=== PATIENT | male | born 1980 | race Two or more races ===

== ENCOUNTER 2023-09-02 20:17 | Emergency (ER) | payer OTHER ==
[~2023-09-02] VITALS: Ht 177.8 cm; Wt 120.2 kg
[~2023-09-02 20:17] MED LIST: COZAAR50 MG PO; DICLOFENAC SODI50 MG PO; GLUCOPHAGE XR500 MG PO; KETO10TA2 PO; LEVAQUIN750 MG PO; NORFLEX100MG PO; ORPH100T PO; TRADJENTA5 MG PO; TUSSI-PRES LIQ120 ML PO
[2023-09-02] MEDS ORDERED: SYNJARDY 12.5-1 EAC1 PO (20:26)
[2023-09-02] MEDS ORDERED: LOVAZA1 GM PO (20:26)
[2023-09-02] MEDS ORDERED: KETOROLAC TROMETHAMINE 60 MG VIAL IM ONE ×2 (20:45→21:16)
[2023-09-02] MEDS ORDERED: KETO10TA2 PO (22:02)
== END 2023-09-02 22:10 | disposition home or self-care (01) ==
LOC: ER 20:18
DX: M25.511 Pain in right shoulder (principal); E11.9 Type 2 diabetes mellitus without complications; Z79.84 Long term (current) use of oral hypoglycemic drugs; I10 Essential (primary) hypertension